=== PATIENT | female | born 1965 | race Caucasian/White ===

== ENCOUNTER → 2017-12-11 | Outpatient (CLI) | payer BC ==
[~2017-12-11] MED LIST: Adipex-P37.5 M1 PO; DOCU100 PO; HYDACE5325 PO; Hair, Skin & N1 EACH PO; IBUP800 PO; OXYACE5T PO; PHENTERMINE
== END ==
LOC: LAB 15:34 → LAB SHORT 15:34
DX: R30.0 Dysuria (principal)
CPT/HCPCS: 87077; 87086; 87186

== ENCOUNTER → 2020-05-25 | Outpatient (CLI) | payer BC | LOC: LAB EV 18:34 → LAB SHORT 18:34 | DX: N39.0 Urinary tract infection, site not specified (principal) | CPT/HCPCS: 87077; 87086; 87186 ==

== ENCOUNTER → 2023-05-01 | Outpatient (CLI) | payer BC | END | disposition home or self-care (01) | LOC: LAB SHORT 13:24 → LAB 13:24 | DX: R30.0 Dysuria (principal) | CPT/HCPCS: 87077; 87086; 87186 ==